=== PATIENT | male | born 1945 | race Hispanic/Latino ===

== ENCOUNTER 2019-10-01 13:21 | Emergency (ER) | payer OTHER ==
[~2019-10-01] VITALS: Ht 177.8 cm; Wt 81.6 kg
--- NOTE | 2019-10-01 16:42 | Diagnostic Imaging Report ---
EXAMINATION: TOES RIGHT MIN 2 VIEWS INDICATION: Laceration COMPARISON: None FINDINGS: There is a soft tissue defect along the plantar aspect of the great toe. No underlying acute osseous injury. Prominent degenerative changes involve the first MTP joint and the first interphalangeal joint. Alignment remains anatomic. The remaining soft tissues appear unremarkable. IMPRESSION: Great toe soft tissue laceration without acute underlying osseous injury. Degenerative changes as above. Signed by: Valdo Jaramillo MD on 10/01/2019 4:38 PM
[2019-10-01] MEDS ORDERED: NEOMYCIN/POLYMYX/BACITR OINT 0.9 GM PKT TOP ONE (17:00)
--- NOTE | 2019-10-01 17:37 | NUR ---
For discharge instructions the assistant restaurant general manager service was used. Paint [employer]er Machine #[id number]. Instructed patient to keep dressing on his foot for 24 hours. Call the motion picture camera lens technician tomorrow morning. Instructed on signs and symptoms of infection and what to report. Instructed to keep blood sugars under control and to protect his foot and keep the surgical shoe on until seen by motion picture camera lens technician. Patient stated understanding of teaching.
== END 2019-10-01 17:40 | disposition home or self-care (01) ==
LOC: EDSEX 13:21 → ER 13:21
DX: S91.111A Laceration without foreign body of right great toe without damage to nail, initial encounter (principal); W22.09XA Striking against other stationary object, initial encounter; Y93.89 Activity, other specified; Y92.019 Unspecified place in single-family (private) house as the place of occurrence of the external cause
CPT/HCPCS: 99284